=== PATIENT | female | born 1955 | race Two or more races ===

== ENCOUNTER 2020-11-19 02:52 | Emergency (ER) | payer OTHER ==
[~2020-11-19] VITALS: Ht 160 cm; Wt 81.6 kg
[2020-11-19 04:26] LABS: Basophils # (auto) 0 10 ^3/uL (0-0.2); Eosinophils # (auto) 0 10 ^3/uL (0-0.8); Platelet Count (auto) 51 10^3/uL (140-450)
[2020-11-19 04:28] LABS: Basophils % (auto) 0.8 % (0.0-2.0); Eosinophils % (auto) 0.5 % (0.0-7.0); Hematocrit 37.5 % (36.0-46.0); Lymphocytes # (auto) 0.3 10 ^3/uL (0.4-5.4); Lymphocytes % (auto) 5.2 % (10.0-50.0); Mean Corpuscular Hemoglobin 35.3 pg (28.0-32.0); Mean Corpuscular Hgb Conc. 34.7 g/dL (32.0-36.0); Mean Corpuscular Volume 101.8 fL (80.0-100.0); Monocytes # (auto) 0.2 10 ^3/uL (0-1.3); Monocytes % (auto) 3.3 % (0.0-12.0); Neutrophils # (auto) 5.3 10 ^3/uL (1.6-8.6); Neutrophils % (auto) 90.2 % (37.0-80.0); Nucleated Red Blood Cells % 0.1 %; Red Blood Cells 3.68 10^6/uL (4.0-5.20); Red Cell Distribution Width 15.2 % (11.8-14.3); White Blood Cell 5.9 10^3/uL (4.4-10.8)
[2020-11-19 04:33] LABS: Albumin 2.8 g/dL (3.4-5.0); Anion Gap 9 (5-15); Calcium 10.4 mg/dL (8.5-10.1); Carbon Dioxide 23 mmol/L (21-32); Chloride 106 mmol/L (98-107); Glucose 176 mg/dL (74-106); Magnesium 2.3 mg/dL (1.6-2.6); Potassium 4.5 mmol/L (3.5-5.1); Sodium 138 mmol/L (136-145)
[2020-11-19 04:39] LABS: Alanine Aminotransferase 28 U/L (13-56); Alkaline Phosphatase 60 U/L (45-117); Aspartate Aminotransferase 43 U/L (15-37); BUN/Creatinine Ratio 36.1; Bilirubin, Total 2.9 mg/dL (0.2-1.0); GFR African American 26 mL/min; GFR Non-African American 21 mL/min; Total Protein 8.2 g/dL (6.4-8.2)
[2020-11-19 04:41] LABS: Blood Urea Nitrogen 87 mg/dL (7-18)
[2020-11-19 04:44] LABS: Lactic Acid w/Reflex 2.2 mmol/L (0.4-2.0)
[2020-11-19 04:55] LABS: Urine Bacteria FEW /hpf (None Seen); Urine Blood Negative /uL (Negative); Urine Hyaline Cast MOD /lpf (0 - 2); Urine Specific Gravity 1.012 (1.001-1.035); Urine WBC 3 /hpf (0 - 5)
[2020-11-19] MEDS ORDERED: FUROSEMIDE 100 MG/10ML VIAL IV ONE (06:00)
[2020-11-19] MEDS ORDERED: PIPERACILLIN-TAZOB 3.375GM 100 ML IV ONE (06:15)
[2020-11-19 10:00] VITALS: BP 134/60
== END 2020-11-19 10:20 | disposition home or self-care (01) ==
LOC: EDBD 02:52 → ER 02:52
DX: J18.9 Pneumonia, unspecified organism (principal); J44.9 Chronic obstructive pulmonary disease, unspecified; E11.22 Type 2 diabetes mellitus with diabetic chronic kidney disease; I13.2 Hypertensive heart and chronic kidney disease with heart failure and with stage 5 chronic kidney disease, or end stage renal disease; I50.9 Heart failure, unspecified; N18.6 End stage renal disease; Z20.822 Contact with and (suspected) exposure to COVID-19
CPT/HCPCS: 36415; 36600; 71045; 80053; 81001; 82805; 83605; 83735; 83880; 84484; 85025; 85379; 87040; 87426; 93005; 96365; 96366; 96375; 99285; J1940; J2543

== ENCOUNTER 2020-12-03 21:24 | Emergency (ER) | payer OTHER ==
[~2020-12-03] VITALS: Ht 165.1 cm; Wt 90.7 kg
[2020-12-03 22:45] LABS: Basophils # (auto) 0 10 ^3/uL (0-0.2); Hemoglobin 11.9 g/dL (12.2-16.2); Lymphocytes # (auto) 0.4 10 ^3/uL (0.4-5.4); Monocytes # (auto) 0.3 10 ^3/uL (0-1.3)
[2020-12-03 22:47] LABS: Basophils % (auto) 0.5 % (0.0-2.0); Eosinophils # (auto) 0.1 10 ^3/uL (0-0.8); Hematocrit 32.9 % (36.0-46.0); Lymphocytes % (auto) 7.2 % (10.0-50.0); Mean Corpuscular Hemoglobin 36.3 pg (28.0-32.0); Mean Corpuscular Hgb Conc. 36.2 g/dL (32.0-36.0); Mean Corpuscular Volume 100.5 fL (80.0-100.0); Monocytes % (auto) 5.5 % (0.0-12.0); Neutrophils # (auto) 4.5 10 ^3/uL (1.6-8.6); Neutrophils % (auto) 85.8 % (37.0-80.0); Red Blood Cells 3.27 10^6/uL (4.0-5.20); Red Cell Distribution Width 15.5 % (11.8-14.3); White Blood Cell 5.2 10^3/uL (4.4-10.8)
[2020-12-03 23:01] LABS: Albumin 2.5 g/dL (3.4-5.0); Anion Gap 8 (5-15); Blood Urea Nitrogen 29 mg/dL (7-18); Calcium 9.5 mg/dL (8.5-10.1); Carbon Dioxide 24 mmol/L (21-32); Chloride 106 mmol/L (98-107); Glucose 182 mg/dL (74-106); Magnesium 1.4 mg/dL (1.6-2.6); Potassium 3.7 mmol/L (3.5-5.1); Sodium 138 mmol/L (136-145)
[2020-12-03 23:09] LABS: Alanine Aminotransferase 29 U/L (13-56); Alkaline Phosphatase 108 U/L (45-117); Aspartate Aminotransferase 21 U/L (15-37); BUN/Creatinine Ratio 14.4; Bilirubin, Total 5.1 mg/dL (0.2-1.0); CRP High Sensitivity 1.06 mg/dL (< 0.3); GFR African American 32 mL/min; GFR Non-African American 26 mL/min; Total Protein 6.3 g/dL (6.4-8.2)
[2020-12-03] MEDS ORDERED: ACETAMINOPHEN 325 MG TAB PO ONE (23:45)
[2020-12-04 00:15] LABS: INR 1.43 (0.9-1.15); Partial Thromboplastin Time 26.5 sec (23.0-31.2)
[2020-12-04] MEDS ORDERED: PIPERACILLIN-TAZO 4.5GM 100 ML IV ONE (01:30)
[2020-12-04] MEDS ORDERED: methylPREDNISolone SOD SUCC 125 MG/2 ML VL IV ONE (01:30)
[2020-12-04] MEDS ORDERED: ACETAMINOPHEN 325 MG TAB PO ONE (02:00)
[2020-12-04 08:24] VITALS: BP 114/60
== END 2020-12-04 09:07 | disposition short-term general hospital (02) ==
LOC: EDBD 21:24 → ER 21:24
DX: J18.9 Pneumonia, unspecified organism (principal); J44.9 Chronic obstructive pulmonary disease, unspecified; I11.0 Hypertensive heart disease with heart failure; I50.9 Heart failure, unspecified; E11.9 Type 2 diabetes mellitus without complications; Z20.822 Contact with and (suspected) exposure to COVID-19
CPT/HCPCS: 36415; 71045; 80053; 82728; 83615; 83735; 83880; 84484; 85025; 85610; 85730; 86141; 87040; 87426; 96365; 96366; 96375; 99285; J2543; J2930; 87077; 87186; 93005

== ENCOUNTER 2021-03-18 10:33 | Emergency (ER) | payer OTHER ==
[~2021-03-18] VITALS: Ht 167.6 cm; Wt 79.4 kg
[2021-03-18 11:03] LABS: Eosinophils # (auto) 0 10 ^3/uL (0-0.8); Hemoglobin 10.4 g/dL (12.2-16.2); Mean Corpuscular Hgb Conc. 34.1 g/dL (32.0-36.0); Monocytes # (auto) 0.3 10 ^3/uL (0-1.3); White Blood Cell 4.2 10^3/uL (4.4-10.8)
[2021-03-18 11:04] LABS: Basophils # (auto) 0.1 10 ^3/uL (0-0.2); Basophils % (auto) 1.3 % (0.0-2.0); Eosinophils % (auto) 0.3 % (0.0-7.0); Hematocrit 30.6 % (36.0-46.0); Lymphocytes # (auto) 0.5 10 ^3/uL (0.4-5.4); Lymphocytes % (auto) 10.8 % (10.0-50.0); Mean Corpuscular Hemoglobin 31.5 pg (28.0-32.0); Mean Corpuscular Volume 92.5 fL (80.0-100.0); Monocytes % (auto) 8.2 % (0.0-12.0); Neutrophils # (auto) 3.4 10 ^3/uL (1.6-8.6); Neutrophils % (auto) 79.4 % (37.0-80.0); Red Cell Distribution Width 15.3 % (11.8-14.3)
[2021-03-18 11:18] LABS: INR 1.33 (0.9-1.15); Partial Thromboplastin Time 31.3 sec (23.6-33.0)
[2021-03-18 11:40] LABS: Albumin 2.3 g/dL (3.4-5.0); Calcium 10.3 mg/dL (8.5-10.1)
[2021-03-18 11:43] LABS: BUN/Creatinine Ratio 11.6; Lactic Acid w/Reflex 3.5 mmol/L (0.4-2.0)
[2021-03-18] MEDS ORDERED: cefTRIAXone 1GM/50ML D5W 50 ML IV ONE (12:15)
[2021-03-18] MEDS ORDERED: SODIUM CHLORIDE 0.9% 1,000 ML IV ONE ×2 (12:15)
[2021-03-18 12:37] LABS: Total Protein 6.8 g/dL (6.4-8.2)
[2021-03-18] MEDS ORDERED: POTASSIUM EFFERVESENT TAB 25 MEQ PO ONE (14:45)
[2021-03-18 16:11] LABS: Urine Bacteria FEW /hpf (None Seen); Urine Blood TRACE /uL (Negative); Urine Specific Gravity 1.017 (1.001-1.035); Urine WBC 2 /hpf (0 - 5)
[2021-03-18 18:37] LABS: Basophils # (auto) 0 10 ^3/uL (0-0.2); Eosinophils # (auto) 0 10 ^3/uL (0-0.8); Hematocrit 24.7 % (36.0-46.0); Lymphocytes # (auto) 0.4 10 ^3/uL (0.4-5.4); Lymphocytes % (auto) 11.9 % (10.0-50.0); Monocytes # (auto) 0.4 10 ^3/uL (0-1.3); Monocytes % (auto) 11.7 % (0.0-12.0); Nucleated Red Blood Cells % 0.1 %; White Blood Cell 3.1 10^3/uL (4.4-10.8)
[2021-03-18 18:40] LABS: Basophils % (auto) 0.6 % (0.0-2.0); Eosinophils % (auto) 0.5 % (0.0-7.0); Hemoglobin 8.5 g/dL (12.2-16.2); Mean Corpuscular Hemoglobin 31.7 pg (28.0-32.0); Mean Corpuscular Hgb Conc. 34.5 g/dL (32.0-36.0); Mean Corpuscular Volume 91.9 fL (80.0-100.0); Neutrophils # (auto) 2.3 10 ^3/uL (1.6-8.6); Neutrophils % (auto) 75.3 % (37.0-80.0); Red Blood Cells 2.69 10^6/uL (4.0-5.20); Red Cell Distribution Width 15.3 % (11.8-14.3)
[2021-03-19 00:32] LABS: BUN/Creatinine Ratio 12.4; Bilirubin, Total 2.2 mg/dL (0.2-1.0); Calcium 9.5 mg/dL (8.5-10.1); Total Protein 6.2 g/dL (6.4-8.2)
[2021-03-19 00:33] LABS: Potassium 3.4 mmol/L (3.5-5.1)
[2021-03-19 00:50] VITALS: BP 156/74
== END 2021-03-19 01:22 | disposition short-term general hospital (02) ==
LOC: ER 10:33 → EDBD 10:33 → ER 03-19 01:22
DX: A41.9 Sepsis, unspecified organism (principal); E43 Unspecified severe protein-calorie malnutrition; I11.0 Hypertensive heart disease with heart failure; I50.9 Heart failure, unspecified; E11.9 Type 2 diabetes mellitus without complications; J44.9 Chronic obstructive pulmonary disease, unspecified; Z68.28 Body mass index [BMI] 28.0-28.9, adult; Z88.2 Allergy status to sulfonamides; Z20.822 Contact with and (suspected) exposure to COVID-19
CPT/HCPCS: 36415; 71045; 74176; 80053; 81001; 82140; 82550; 83605; 83880; 84484; 85025; 85610; 85730; 87040; 87426; 93005; 96365; 99291; J0696; J7030

== ENCOUNTER 2021-10-29 08:33 | Emergency (ER) | payer OTHER ==
[~2021-10-29] VITALS: Ht 167.6 cm; Wt 77.1 kg
[2021-10-29] MEDS ORDERED: ONDANSETRON HCL 4 MG/2 ML VIAL IV ONE ×2 (11:15→16:15)
[2021-10-29] MEDS ORDERED: MORPHINE SULFATE INJ 2 MG/ml SYRG IV ONE ×2 (11:15→16:15)
[2021-10-29] MEDS ORDERED: SODIUM CHLORIDE 0.9% 1,000 ML IV ONE (12:00)
[2021-10-29 13:21] LABS: Urine Bacteria NONE SEEN /hpf (None Seen); Urine Blood 1+ /uL (Negative); Urine Specific Gravity 1.014 (1.001-1.035); Urine WBC 1 /hpf (0 - 5)
[2021-10-29 13:55] LABS: INR 1.78 (0.9-1.15); Partial Thromboplastin Time 36.3 sec (23.6-33.0)
[2021-10-29 13:56] LABS: BUN/Creatinine Ratio 13.6; Calcium 9.4 mg/dL (8.5-10.1); Magnesium 1.8 mg/dL (1.6-2.6); Potassium 4.3 mmol/L (3.5-5.1)
[2021-10-29 13:58] LABS: Bilirubin, Total 4.3 mg/dL (0.2-1.0); Total Protein 5.5 g/dL (6.4-8.2)
[2021-10-29 14:08] LABS: Basophils # (auto) 0 10 ^3/uL (0-0.2); Lymphocytes # (auto) 0.6 10 ^3/uL (0.4-5.4); Mean Corpuscular Hemoglobin 36.3 pg (28.0-32.0); Neutrophils # (auto) 2.5 10 ^3/uL (1.6-8.6); White Blood Cell 3.4 10^3/uL (4.4-10.8)
[2021-10-29 14:10] LABS: Basophils % (auto) 0.6 % (0.0-2.0); Eosinophils # (auto) 0 10 ^3/uL (0-0.8); Eosinophils % (auto) 1.3 % (0.0-7.0); Hematocrit 22.3 % (36.0-46.0); Hemoglobin 8.1 g/dL (12.2-16.2); Lymphocytes % (auto) 17.3 % (10.0-50.0); Mean Corpuscular Hgb Conc. 36.3 g/dL (32.0-36.0); Mean Corpuscular Volume 100.3 fL (80.0-100.0); Monocytes # (auto) 0.3 10 ^3/uL (0-1.3); Monocytes % (auto) 7.7 % (0.0-12.0); Neutrophils % (auto) 73.1 % (37.0-80.0); Nucleated Red Blood Cells % 0.3 %; Red Blood Cells 2.23 10^6/uL (4.0-5.20); Red Cell Distribution Width 16.2 % (11.8-14.3)
[2021-10-29] MEDS ORDERED: cefTRIAXone 1GM/50ML D5W 50 ML IV ONE (15:45)
[2021-10-29 22:53] VITALS: BP 148/55
== END 2021-10-29 23:28 | disposition short-term general hospital (02) ==
LOC: EDUNIT# 08:33 → ER 08:33 → EDBD 08:33 → ER 23:28
DX: S32.502A Unspecified fracture of left pubis, initial encounter for closed fracture (principal); D64.9 Anemia, unspecified; D75.89 Other specified diseases of blood and blood-forming organs; E11.22 Type 2 diabetes mellitus with diabetic chronic kidney disease; I13.0 Hypertensive heart and chronic kidney disease with heart failure and stage 1 through stage 4 chronic kidney disease, or unspecified chronic kidney disease; N18.9 Chronic kidney disease, unspecified; I50.89 Other heart failure; E43 Unspecified severe protein-calorie malnutrition; D69.6 Thrombocytopenia, unspecified; J18.9 Pneumonia, unspecified organism; Z20.822 Contact with and (suspected) exposure to COVID-19; Z68.27 Body mass index [BMI] 27.0-27.9, adult; W01.0XXA Fall on same level from slipping, tripping and stumbling without subsequent striking against object, initial encounter; Y93.89 Activity, other specified; Y92.098 Other place in other non-institutional residence as the place of occurrence of the external cause; Y99.8 Other external cause status
CPT/HCPCS: 36415; 71045; 73502; 73700; 80053; 81001; 83735; 84443; 85025; 85610; 85730; 87426; 93005; 96361; 96365; 96375; 96376; 99285; J0696; J2270; J2405; J7030

== ENCOUNTER 2022-04-03 00:10 | Inpatient (IN) | payer OTHER ==
[~2022-04-03] VITALS: Ht 165.1 cm; Wt 87.4 kg
[2022-04-03 01:30] LABS: Basophils # (auto) 0 10 ^3/uL (0-0.2); Eosinophils # (auto) 0 10 ^3/uL (0-0.8); Eosinophils % (auto) 0.2 % (0.0-7.0); Lymphocytes # (auto) 0.2 10 ^3/uL (0.4-5.4); Monocytes # (auto) 0.1 10 ^3/uL (0-1.3)
[2022-04-03 01:32] LABS: Basophils % (auto) 0.4 % (0.0-2.0); Hematocrit 25.6 % (36.0-46.0); Hemoglobin 8.9 g/dL (12.2-16.2); Lymphocytes % (auto) 19.5 % (10.0-50.0); Mean Corpuscular Hemoglobin 34.4 pg (28.0-32.0); Mean Corpuscular Hgb Conc. 34.6 g/dL (32.0-36.0); Mean Corpuscular Volume 99.3 fL (80.0-100.0); Monocytes % (auto) 10.5 % (0.0-12.0); Neutrophils # (auto) 0.7 10 ^3/uL (1.6-8.6); Neutrophils % (auto) 69.4 % (37.0-80.0); Nucleated Red Blood Cells % 0.1 %; Red Blood Cells 2.58 10^6/uL (4.0-5.20); Red Cell Distribution Width 15.7 % (11.8-14.3)
[2022-04-03 01:48] LABS: INR 1.47 (0.9-1.15)
[2022-04-03 01:49] LABS: BUN/Creatinine Ratio 8.9; Calcium 8.8 mg/dL (8.5-10.1); Magnesium 1.5 mg/dL (1.6-2.6); Potassium 3.8 mmol/L (3.5-5.1)
[2022-04-03 01:52] LABS: Total Protein 6.1 g/dL (6.4-8.2)
[2022-04-03] MEDS ORDERED: cefTRIAXone 1GM/50ML D5W 50 ML IV ONE (02:30)
[2022-04-03] MEDS ORDERED: methylPREDNISolone SOD SUCC 125 MG/2 ML VL IV ONE (02:30)
[2022-04-03] MEDS ORDERED: ACETAMINOPHEN 325 MG TAB PO PRN (04:15)
[2022-04-03] MEDS ORDERED: TEMAZEPAM 15 MG CAP PO PRN (04:15)
[2022-04-03] MEDS ORDERED: MORPHINE SULFATE INJ 2 MG/ml SYRG IV PRN (04:15)
[2022-04-03] MEDS ORDERED: FILGRASTIM (TBO) 300 MCG/0.5 ML SYRG SC ONE (04:15)
[2022-04-03] MEDS ORDERED: ONDANSETRON HCL 4 MG/2 ML VIAL IV PRN (04:15)
[2022-04-03] MEDS ORDERED: NITROGLYCERIN 0.4 MG SL TAB SL PRN (04:15)
[2022-04-03 04:24] VITALS: BP 151/63
[2022-04-03] MEDS: MAGNESIUM SULFATE 1GM/100ML 100 ML IV SCH ×2 (06:49→08:31)
[2022-04-03] MEDS ORDERED: MAGNESIUM SULFATE 1GM/100ML 100 ML IV SCH ×2 (07:15→08:30)
[2022-04-03] MEDS: ENOXAPARIN SOD 40 MG/0.4 ML SYRINGE SC SCH (09:52)
[2022-04-03] MEDS: MULTIPLE VITAMIN TAB PO SCH (09:58)
[2022-04-03] MEDS: ASCORBIC ACID 500 MG TAB PO SCH ×2 (09:58→22:50)
[2022-04-03] MEDS: ZINC SULFATE 220mg CAP or TAB PO SCH (09:58)
[2022-04-03] MEDS: LACTULOSE 20Gm/30ML SOLN PO SCH (10:00)
[2022-04-03] MEDS: AZITHROMYCIN 500MG/ 250ML 250 ML IV SCH (10:00)
[2022-04-03] MEDS: DexAMETHasone SOD PHOS 10MG/1ML VIAL INJ IV SCH (10:00)
[2022-04-03] MEDS: amLODIPine BESYLATE 5 MG TAB PO SCH (10:00)
[2022-04-03 11:57] LABS: Urine Bacteria FEW /hpf (None Seen); Urine Blood 2+ /uL (Negative); Urine Specific Gravity 1.017 (1.001-1.035); Urine WBC 5 /hpf (0 - 5)
[2022-04-03] MEDS ORDERED: REMDESIVIR PER PHARMACY 0 ML IV SCH (13:30)
[2022-04-03] MEDS ORDERED: OMEP-260 PO (17:51)
[2022-04-03] MEDS ORDERED: RIFA550T PO (17:51)
[2022-04-03] MEDS ORDERED: POTA10TA32 PO (17:51)
[2022-04-03] MEDS ORDERED: REMDESIVIR 200 MG in NS 210ml LOADING DOSE ADULT IV ONE (18:00)
[2022-04-03 21:36] VITALS: BP 124/57
[2022-04-03] MEDS: cefTRIAXone 1GM/50ML D5W 50 ML IV SCH (22:00)
[2022-04-04 04:42] VITALS: BP 119/54
[2022-04-04 05:29] LABS: Basophils # (auto) 0 10 ^3/uL (0-0.2); Eosinophils # (auto) 0 10 ^3/uL (0-0.8); Hematocrit 24.4 % (36.0-46.0); Hemoglobin 8.3 g/dL (12.2-16.2); Lymphocytes # (auto) 0.2 10 ^3/uL (0.4-5.4); Mean Corpuscular Hemoglobin 34.4 pg (28.0-32.0); Mean Corpuscular Hgb Conc. 34.2 g/dL (32.0-36.0); Mean Corpuscular Volume 100.8 fL (80.0-100.0); Monocytes # (auto) 0.2 10 ^3/uL (0-1.3); Monocytes % (auto) 2.6 % (0.0-12.0); Neutrophils # (auto) 5.6 10 ^3/uL (1.6-8.6); Neutrophils % (auto) 94.4 % (37.0-80.0); Red Blood Cells 2.42 10^6/uL (4.0-5.20); Red Cell Distribution Width 15.4 % (11.8-14.3)
[2022-04-04 05:46] LABS: Albumin 1.9 g/dL (3.4-5.0); BUN/Creatinine Ratio 11.7; Calcium 9.1 mg/dL (8.5-10.1)
[2022-04-04 05:49] LABS: Bilirubin, Total 1.9 mg/dL (0.2-1.0); Total Protein 5.8 g/dL (6.4-8.2)
[2022-04-04 08:00] VITALS: BP 126/53
[2022-04-04 08:30] VITALS: BP 126/53
[2022-04-04] MEDS: ENOXAPARIN SOD 40 MG/0.4 ML SYRINGE SC SCH (10:00)
[2022-04-04] MEDS: LACTULOSE 20Gm/30ML SOLN PO SCH (10:25)
[2022-04-04] MEDS: DexAMETHasone SOD PHOS 10MG/1ML VIAL INJ IV SCH (10:25)
[2022-04-04] MEDS: amLODIPine BESYLATE 5 MG TAB PO SCH (10:26)
[2022-04-04] MEDS: ASCORBIC ACID 500 MG TAB PO SCH ×2 (10:26→21:04)
[2022-04-04] MEDS: AZITHROMYCIN 500MG/ 250ML 250 ML IV SCH (10:26)
[2022-04-04] MEDS: ZINC SULFATE 220mg CAP or TAB PO SCH (10:26)
[2022-04-04] MEDS: MULTIPLE VITAMIN TAB PO SCH (10:26)
[2022-04-04 12:30] VITALS: BP 130/60
[2022-04-04] MEDS ORDERED: REMDESIVIR 100mg 100 MG in SODIUM CHL 0.9% 230 ML IV SCH (15:00)
[2022-04-04 16:30] VITALS: BP 115/50
[2022-04-04] MEDS: cefTRIAXone 1GM/50ML D5W 50 ML IV SCH (21:04)
[2022-04-04] MEDS: rifAXIMin 550 MG TAB PO SCH (21:04)
[2022-04-04 21:50] VITALS: BP 111/58
[2022-04-05] VITALS (7 sets, daily range): BP systolic 114–132; BP diastolic 48–62
[2022-04-05 06:21] LABS: Calcium 9.5 mg/dL (8.5-10.1); Potassium 4.2 mmol/L (3.5-5.1)
[2022-04-05 06:24] LABS: BUN/Creatinine Ratio 16.8; Bilirubin, Total 1.5 mg/dL (0.2-1.0); Total Protein 6.1 g/dL (6.4-8.2)
[2022-04-05] MEDS: ENOXAPARIN SOD 40 MG/0.4 ML SYRINGE SC SCH (10:00)
[2022-04-05] MEDS: LACTULOSE 20Gm/30ML SOLN PO SCH (10:50)
[2022-04-05] MEDS: rifAXIMin 550 MG TAB PO SCH ×2 (10:50→21:37)
[2022-04-05] MEDS: DexAMETHasone SOD PHOS 10MG/1ML VIAL INJ IV SCH (10:50)
[2022-04-05] MEDS: ASCORBIC ACID 500 MG TAB PO SCH ×2 (10:52→21:37)
[2022-04-05] MEDS: amLODIPine BESYLATE 5 MG TAB PO SCH (10:52)
[2022-04-05] MEDS: ZINC SULFATE 220mg CAP or TAB PO SCH (10:52)
[2022-04-05] MEDS: MULTIPLE VITAMIN TAB PO SCH (10:52)
[2022-04-05] MEDS: AZITHROMYCIN 500MG/ 250ML 250 ML IV SCH (10:56)
[2022-04-05] MEDS: ALBUTEROL SULF 2.5 MG/0.5ML(0.5%) NEB SOLN NEB PRN (12:10)
[2022-04-05] MEDS: cefTRIAXone 1GM/50ML D5W 50 ML IV SCH (21:36)
[2022-04-06 02:37] VITALS: BP 128/48
[2022-04-06 05:09] VITALS: BP 140/54
[2022-04-06 05:59] LABS: Potassium 3.9 mmol/L (3.5-5.1)
[2022-04-06 06:12] LABS: Albumin 1.8 g/dL (3.4-5.0); Bilirubin, Total 1.6 mg/dL (0.2-1.0); Calcium 9.4 mg/dL (8.5-10.1); Total Protein 5.9 g/dL (6.4-8.2)
[2022-04-06 08:05] VITALS: BP 132/52
[2022-04-06 09:00] VITALS: BP 132/52
[2022-04-06] MEDS: ASCORBIC ACID 500 MG TAB PO SCH (09:01)
[2022-04-06] MEDS: ZINC SULFATE 220mg CAP or TAB PO SCH (09:02)
[2022-04-06] MEDS: MULTIPLE VITAMIN TAB PO SCH (09:02)
[2022-04-06] MEDS: AZITHROMYCIN 500MG/ 250ML 250 ML IV SCH (09:03)
[2022-04-06] MEDS: LACTULOSE 20Gm/30ML SOLN PO SCH (09:03)
[2022-04-06] MEDS: DexAMETHasone SOD PHOS 10MG/1ML VIAL INJ IV SCH (09:03)
[2022-04-06] MEDS: amLODIPine BESYLATE 5 MG TAB PO SCH (09:05)
[2022-04-06] MEDS: rifAXIMin 550 MG TAB PO SCH (09:24)
[2022-04-06] MEDS: ENOXAPARIN SOD 40 MG/0.4 ML SYRINGE SC SCH (09:25)
[2022-04-06] MEDS: ALBUTEROL SULF 2.5 MG/0.5ML(0.5%) NEB SOLN NEB PRN (09:53)
[2022-04-06 13:00] VITALS: BP 134/58
[2022-04-06] MEDS ORDERED: AZIT250T8 PO ×2 (13:36→13:50)
[2022-04-06] MEDS ORDERED: DEXA6TAB6 PO (13:36)
[2022-04-06 14:54] VITALS: BP 132/52
[2022-04-06] MEDS ORDERED: REMDESIVIR 100mg 100 MG in SODIUM CHL 0.9% 230 ML IV SCH (16:18)
== END 2022-04-06 16:21 | disposition home or self-care (01) | DRG 177 ==
LOC: EDUNIT# 00:10 → EDBD 00:10 → ER 00:13 → TELE 04:04 → TELE-WESTW 16:52
PROVIDERS: ADMIT Nurse Practitioner; ATTEND Nurse Practitioner Acute Care
PROC: XW033E5 Introduction of Remdesivir Anti-infective into Peripheral Vein, Percutaneous Approach, New Technology Group 5 (ICD-10-PCS; principal; 2022-04-03)
PROC: 05HC33Z Insertion of Infusion Device into Left Basilic Vein, Percutaneous Approach (ICD-10-PCS; 2022-04-04)
PROC: B54NZZA Ultrasonography of Left Upper Extremity Veins, Guidance (ICD-10-PCS; 2022-04-04)
DX: U07.1 COVID-19 (principal); E43 Unspecified severe protein-calorie malnutrition; J12.82 Pneumonia due to coronavirus disease 2019; J96.21 Acute and chronic respiratory failure with hypoxia; D61.818 Other pancytopenia; N17.9 Acute kidney failure, unspecified; I13.0 Hypertensive heart and chronic kidney disease with heart failure and stage 1 through stage 4 chronic kidney disease, or unspecified chronic kidney disease; J44.0 Chronic obstructive pulmonary disease with (acute) lower respiratory infection; E83.42 Hypomagnesemia; I50.9 Heart failure, unspecified; K74.60 Unspecified cirrhosis of liver; N18.9 Chronic kidney disease, unspecified; M10.9 Gout, unspecified; E88.09 Other disorders of plasma-protein metabolism, not elsewhere classified; E11.22 Type 2 diabetes mellitus with diabetic chronic kidney disease; E66.9 Obesity, unspecified; Z68.29 Body mass index [BMI] 29.0-29.9, adult; Z88.2 Allergy status to sulfonamides; Z91.041 Radiographic dye allergy status; Z87.442 Personal history of urinary calculi; Z90.49 Acquired absence of other specified parts of digestive tract; Z23 Encounter for immunization
CPT/HCPCS: 36415; 36600; 71045; 80053; 81001; 82140; 82805; 83735; 83880; 84484; 85025; 85379; 85610; 85730; 87426; 93005; 94640; 96365; 96366; 96367; 96372; 96375; 99291; G0378; J0696; J1100; J1447

== ENCOUNTER 2022-04-12 17:27 | Emergency (ER) | payer OTHER ==
[~2022-04-12] VITALS: Ht 160 cm; Wt 73.0 kg
[~2022-04-12 17:27] MED LIST: AZIT250T8 PO; DEXA6TAB6 PO; OMEP-260 PO; POTA10TA32 PO; RIFA550T PO
[2022-04-12 18:57] LABS: Albumin 2.5 g/dL (3.4-5.0); BUN/Creatinine Ratio 34.4; Potassium 5.4 mmol/L (3.5-5.1)
[2022-04-12 18:59] LABS: Bilirubin, Total 6.5 mg/dL (0.2-1.0); Total Protein 7.1 g/dL (6.4-8.2)
[2022-04-12 19:02] LABS: Basophils # (auto) 0 10 ^3/uL (0-0.2); Eosinophils # (auto) 0 10 ^3/uL (0-0.8); Hemoglobin 11.3 g/dL (12.2-16.2); Lymphocytes # (auto) 0.1 10 ^3/uL (0.4-5.4); Mean Corpuscular Hgb Conc. 33.5 g/dL (32.0-36.0); Monocytes # (auto) 0.6 10 ^3/uL (0-1.3); Neutrophils # (auto) 9.9 10 ^3/uL (1.6-8.6); Nucleated Red Blood Cells % 0.1 %; Red Cell Distribution Width 16.3 % (11.8-14.3); White Blood Cell 10.6 10^3/uL (4.4-10.8)
[2022-04-12 19:06] LABS: Basophils % (auto) 0.1 % (0.0-2.0); Eosinophils % (auto) 0.1 % (0.0-7.0); Hematocrit 33.7 % (36.0-46.0); Lymphocytes % (auto) 1.2 % (10.0-50.0); Mean Corpuscular Hemoglobin 33.7 pg (28.0-32.0); Mean Corpuscular Volume 100.7 fL (80.0-100.0); Monocytes % (auto) 5.5 % (0.0-12.0); Neutrophils % (auto) 93.1 % (37.0-80.0); Red Blood Cells 3.35 10^6/uL (4.0-5.20)
[2022-04-12] MEDS ORDERED: LACTATED RINGER'S 2,000 ML IV ONE (20:15)
[2022-04-12] MEDS ORDERED: KETOROLAC TROMETH 30 MG/ML 1ML VIAL IV ONE (23:30)
[2022-04-13] MEDS ORDERED: ONDANSETRON ODT 4 MG TAB PO ONE (05:00)
[2022-04-13] MEDS ORDERED: SODIUM BICARBONATE 8.4% INJ 50ML SYRINGE ONE (05:27)
[2022-04-13] MEDS ORDERED: InsuLIN REG 1unit/0.01ml Soln (100units/ml) ONE (05:28)
[2022-04-13] MEDS ORDERED: SODIUM BICARBONATE 8.4% INJ 50ML SYRINGE IV ONE (05:30)
[2022-04-13] MEDS ORDERED: InsuLIN REG 1unit/0.01ml Soln (100units/ml) IV ONE (05:30)
[2022-04-13] MEDS ORDERED: CALCIUM CHL 100MG/ML 500 MG in D5W 5% 100 ML IV ONE (05:30)
[2022-04-13] MEDS ORDERED: dilTIAZem 25 MG/5 ML VIAL IV ONE ×4 (05:30→06:15)
[2022-04-13 06:15] VITALS: BP 133/52
== END 2022-04-13 06:37 | disposition short-term general hospital (02) ==
LOC: EDUNIT# 17:27 → ER 17:27 → EDBD 17:27 → ER 04-13 06:37
DX: R77.8 Other specified abnormalities of plasma proteins (principal); N17.9 Acute kidney failure, unspecified; R53.83 Other fatigue; I11.0 Hypertensive heart disease with heart failure; I50.9 Heart failure, unspecified; J44.9 Chronic obstructive pulmonary disease, unspecified; Z90.49 Acquired absence of other specified parts of digestive tract; Z87.442 Personal history of urinary calculi; Z88.2 Allergy status to sulfonamides; Z20.822 Contact with and (suspected) exposure to COVID-19
CPT/HCPCS: 36415; 71045; 80053; 82962; 84132; 84484; 85025; 87426; 93005; 96361; 96374; 96375; 96376; 99285; J1815; J1885; J7060; Q0162